=== PATIENT | male | born 1965 | race Caucasian/White ===

== ENCOUNTER 2024-05-25 17:53 | Inpatient (IN) | payer MEDICARE, OTHER, SELFPAY ==
[2024-05-25] VITALS (21 sets, daily range): BP systolic 101–142; BP diastolic 71–106; BMI 26.1; BMI 24.9
--- NOTE | 2024-05-25 09:35 | ED.GENMED ---
History of Present Illness
<ROSA Callejas Jr. Last Filed: 05/25/24 15:02>
General
Chief Complaint: Chest Pain
Source: patient and spouse
Exam Limitations: none
Time Seen by Provider: 05/25/24 09:26
Nursing documentation reviewed up to this point in time: agreed with
History of Present Illness
History of Present Illness:
59-year-old male past medical history of vasculitis currently on chemo, history of clots in the past, neuropathy presenting to the emergency department today with concerns of chest pain intermittently over the past 2 weeks but ongoing since last
night. Started to worsen today with lightheadedness while snowblowing. Also has chest pressure bilaterally no radiation of pain some associated shortness of breath no nausea vomiting or diaphoresis.
Past History
<ROSA Callejas Jr. Last Filed: 05/25/24 15:02>
Past History
ED Past Medical History: Hypercholesterolemia and Other (Vasculitis, MGUS, trigeminal neuralgia)
ED Past Surgical History: Other (Biopsy right ankle area)
Social History
Tobacco: Former smoker
Alcohol: Occasional
Drug: None
Personal:
Living: with family
Employment: Employed
Family History
Family History: Other (He has a father with Ztbdylh-Sirlg-Xumed disease)
Review of Systems
<ROSA Callejas Jr. Last Filed: 05/25/24 15:02>
Review of Systems
Allergies reviewed?: Yes
All Other Systems: ROS reviewed and negative except as documented in HPI and ROS
Phy Exam
<Andrés Elam Jr., PA-C - Last Filed: 05/25/24 15:02>
Physical Exam
Physical Exam:
GENERAL: Alert , in no apparent distress
EYE: pupils equal and reactive
NECK: Supple, no significant adenopathy.
ENT: o/p clr, mmm.
CARDIAC: Tachycardic regular rhythm .
LUNGS: Clear breath sounds bilaterally, no acute respiratory distress, no wheezes/rales/rhonchi
ABDOMEN: Soft, without focal tenderness, no r/g, no cvat
NEUROLOGICAL: Alert and oriented, no focal neuro deficits
SKIN: Warm and dry, skin intact.
MUSCULOSKELETAL: No edema, well perfused.
PSYCH: Normal and appropriate interaction.
Scores
<Andrés Elam Jr., PA-C - Last Filed: 05/25/24 15:02>
Heart Score for Chest Pain Patients
STEMI patient?: No
History: Moderately Suspicious
ECG: Nonspecific Repolarization
Age: >45 - <65 years
Risk Factors: 1 or 2 Risk Factors
Troponin: >/= 3 x Normal Limit
Heart Score for Chest Pain Patients: 6
Heart Score Risk: 20.3% MACE over next 6 weeks
Course
<Andrés Elam Jr., PA-C - Last Filed: 05/25/24 15:02>
Orders/Labs/Results
Orders:
Orders
05/25/24
Electrocardiogram (*1) Stat
Comment: ALREADY DONE
05/25/24 09:25
Adenosine [Adenocard] 6 mg .ROUTE .STK-MED ONE
05/25/24 09:32
Electrocardiogram (*1) Urgent
Reason for Study: Tachycardia
05/25/24 09:33
EKG- Treatment ONCE
05/25/24 09:34
CT Chest PE Study Urgent
Comment:
Reason For Exam: vasculitis hx, tahcy, on chemo, hx of clots
Cardiac Monitoring- Treatment ONCE
05/25/24 09:38
Complete Blood Count/With Diff Urgent
Comprehensive Metabolic Panel Urgent
Magnesium Urgent
NT-proBNP Urgent
PTT Urgent
Prothrombin Time Urgent
TSH Urgent
Troponin I Urgent
05/25/24 09:51
Electrocardiogram (*1) Urgent
Reason for Study: Chest Pain
EKG- Treatment ONCE
05/25/24 12:03
EKG [Electrocardiogram (*1)] Urgent
Reason for Study: Chest Pain
EKG- Treatment ONCE
Aspirin 325 mg PO NOW STA
05/25/24 12:24
Troponin I Urgent
05/25/24 13:[address] Non Medication Order As Directed
Physician Order: PTT 6 hours after initial start of Heparin infusion
Above order entered?: Yes
05/25/24 13:30
Heparin 63552 Units/250 ml 25,000 units in 250 ml IV PER PROTOCOL
Weight to be used for heparin protocol in kilograms (kg):: 87.1
Protocol:: Cardiac Tx/Acute Coronary
PTT Goal Range to be used:: PTT 73 to 111 seconds
Order type:: Initial
INITIAL Infusion Dose (UNITS/KG/hr) & then follow protocol:: 15 units/kg/hr
Infusion Dose in UNITS/hr & then follow protocol (UNITS/hr):: 1,300
INFUSION RATE in mL/hr & then follow protocol (mL/hr):: 13
PTT less than or equal to 64 seconds:: Increase rate by 200 units/hr (+ 2 mL/hr)
PTT 64.1 to 72.9 seconds:: Increase rate by 100 units/hr (+ 1 mL/hr)
PTT 73 to 111 seconds:: Target Range. No change in rate.
PTT 111.1 to 130.9 seconds:: Decrease rate by 100 units/hr (- 1 mL/hr)
PTT 131 to 199.9 seconds:: HOLD for 1 hr. Then decrease rate by 200 units/hr (- 2 mL/hr)
PTT greater than or equal to 200 seconds:: HOLD for 2 hrs & Notify Provider. Then decrease by 200 units/hr (-
2 mL/hr)
Lab follow-up:: Each change, PTT q6h until 2 consecutive are therapeutic. Then PTT
daily.
05/25/24 14:32
Echo 2D MMode Color/Doppler Routine
Reason for Study: heart failure
05/25/24 14:38
PTT Urgent
05/25/24 20:38
PTT Urgent
Abnormal Lab Results
05/25/24 05/25/24
09:38 12:24
MCH 31.9 H pg
(27.0-31.0)
Absolute Neuts (auto) 7.8 H 10^3/uL
(1.4-6.5)
Absolute Monos (auto) 0.9 H 10^3/uL
(0.1-0.6)
Neutrophils % 77.6 H %
(42.2-75.2)
Lymphocytes % 11.5 L %
(20.5-51.1)
Glucose 101 H mg/dl
(70-99)
Troponin I 0.079 H* ng/ml 0.155 H* D ng/ml
Albumin 5.1 H g/dl
(3.5-5.0)
05/25/24 09:38
05/25/24 09:38
Vital Signs
Initial and Last Documented VS:
Initial Vital Signs
Temp Pulse Resp BP Pulse Ox
98.4 F 197 18 142/98 100
05/25/24 09:15 05/25/24 09:15 05/25/24 09:15 05/25/24 09:15 05/25/24 09:15
Last Documented Vital Signs
Temp Pulse Resp BP Pulse Ox
98.4 F 67 20 121/82 99
05/25/24 09:15 05/25/24 13:30 05/25/24 13:30 05/25/24 13:00 05/25/24 13:30
<Lamin Brady MD - Last Filed: 05/25/24 09:38>
Orders/Labs/Results
Orders:
Orders
05/25/24
Electrocardiogram (*1) Stat
Comment: ALREADY DONE
05/25/24 09:25
Adenosine [Adenocard] 6 mg .ROUTE .STK-MED ONE
05/25/24 09:32
Electrocardiogram (*1) Urgent
Reason for Study: Tachycardia
05/25/24 09:33
EKG- Treatment ONCE
05/25/24 09:34
CT Chest PE Study Urgent
Comment:
Reason For Exam: vasculitis hx, tahcy, on chemo, hx of clots
Cardiac Monitoring- Treatment ONCE
05/25/24 09:38
Complete Blood Count/With Diff Urgent
Comprehensive Metabolic Panel Urgent
Magnesium Urgent
NT-proBNP Urgent
PTT Urgent
Prothrombin Time Urgent
TSH Urgent
Troponin I Urgent
05/25/24 09:51
Electrocardiogram (*1) Urgent
Reason for Study: Chest Pain
EKG- Treatment ONCE
05/25/24 12:03
EKG [Electrocardiogram (*1)] Urgent
Reason for Study: Chest Pain
EKG- Treatment ONCE
Aspirin 325 mg PO NOW STA
05/25/24 12:24
Troponin I Urgent
05/25/24 13:[address] Non Medication Order As Directed
Physician Order: PTT 6 hours after initial start of Heparin infusion
Above order entered?: Yes
05/25/24 13:30
Heparin 01200 Units/250 ml 25,000 units in 250 ml IV PER PROTOCOL
Weight to be used for heparin protocol in kilograms (kg):: 87.1
Protocol:: Cardiac Tx/Acute Coronary
PTT Goal Range to be used:: PTT 73 to 111 seconds
Order type:: Initial
INITIAL Infusion Dose (UNITS/KG/hr) & then follow protocol:: 15 units/kg/hr
Infusion Dose in UNITS/hr & then follow protocol (UNITS/hr):: 1,300
INFUSION RATE in mL/hr & then follow protocol (mL/hr):: 13
PTT less than or equal to 64 seconds:: Increase rate by 200 units/hr (+ 2 mL/hr)
PTT 64.1 to 72.9 seconds:: Increase rate by 100 units/hr (+ 1 mL/hr)
PTT 73 to 111 seconds:: Target Range. No change in rate.
PTT 111.1 to 130.9 seconds:: Decrease rate by 100 units/hr (- 1 mL/hr)
PTT 131 to 199.9 seconds:: HOLD for 1 hr. Then decrease rate by 200 units/hr (- 2 mL/hr)
PTT greater than or equal to 200 seconds:: HOLD for 2 hrs & Notify Provider. Then decrease by 200 units/hr (-
2 mL/hr)
Lab follow-up:: Each change, PTT q6h until 2 consecutive are therapeutic. Then PTT
daily.
05/25/24 14:32
Echo 2D MMode Color/Doppler Routine
Reason for Study: heart failure
05/25/24 14:38
PTT Urgent
05/25/24 20:38
PTT Urgent
Abnormal Lab Results
05/25/24 05/25/24
09:38 12:24
MCH 31.9 H pg
(27.0-31.0)
Absolute Neuts (auto) 7.8 H 10^3/uL
(1.4-6.5)
Absolute Monos (auto) 0.9 H 10^3/uL
(0.1-0.6)
Neutrophils % 77.6 H %
(42.2-75.2)
Lymphocytes % 11.5 L %
(20.5-51.1)
Glucose 101 H mg/dl
(70-99)
Troponin I 0.079 H* ng/ml 0.155 H* D ng/ml
Albumin 5.1 H g/dl
(3.5-5.0)
05/25/24 09:38
05/25/24 09:38
Vital Signs
Initial and Last Documented VS:
Initial Vital Signs
Temp Pulse Resp BP Pulse Ox
98.4 F 197 18 142/98 100
05/25/24 09:15 05/25/24 09:15 05/25/24 09:15 05/25/24 09:15 05/25/24 09:15
Last Documented Vital Signs
Temp Pulse Resp BP Pulse Ox
98.4 F 67 20 121/82 99
05/25/24 09:15 05/25/24 13:30 05/25/24 13:30 05/25/24 13:00 05/25/24 13:30
Procedures
<Andrés Elam Jr., PA-C - Last Filed: 05/25/24 15:02>
Other
Indication for procedure:: SVT
Procedure completed by: Myself
Consent form signed: No
If no, reason: Emergency procedure
Additional Procedure:
Verbal consent, SVT heart rate in the 170s. Modified Valsalva performed with immediate resolution of SVT to sinus rhythm in the 90s.
<Andrés Elam Jr., PA-C - Last Filed: 05/25/24 15:02>
MDM/Problems Addressed
MDM/Problems Addressed:
59-year-old male presenting to the emergency department today with concerns of intermittent chest pressure over the past 2 weeks. No referred pain worse with snowblowing this morning. On arrival heart rate in the 190s appears to be in SVT.
Modified Valsalva was performed with success. Appears to be in sinus heart rate in the 90s after conversion. Patient with some ongoing chest pressure here initial troponin level elevated to 0.079. This was repeated at 3 hours and 0.155. EKG does
not show any obvious ischemic changes. Case was discussed with cardiology who recommended starting heparin and ended up taking patient directly to [facility]. Otherwise admitted for further monitoring.
<Andrés Elam Jr., PA-C - Last Filed: 05/25/24 15:02>
*Critical Care Note
Total Time (30-74mins, 75-104mins- exclusive of procedures): Critical care statement:
ED Attending Note
<Andrés Elam Jr., PA-C - Last Filed: 05/25/24 15:02>
-
Portions of this chart may have been created with voice recognition software.� Occasional wrong word or��sound alike� substitutions may have occurred due to the inherent limitations of voice recognition software.
<Lamin Brady MD - Last Filed: 05/25/24 09:38>
ED Attending Note
Patient seen and examined by attending physician: Yes
I performed the substantive portion of visit, reviewed & personally made and approve the management plan that is documented in note by myself or PEDRO LUIS.: Yes
ED Attending Note:
I have seen and evaluated the patient with a [id number] encounter. I have spoken to the [BENJAMIN] and involved in the medical history, the physical exam, medical decision making.
Evaluation and management service: agree unless noted differently below.
Results interpretation: agree unless noted differently below.
59-year-old male with history of vasculitis on chemo, followed by [facility] presenting to the emergency department chest pain. He states that the chest pain has been intermittent for the past few weeks. It worsened this morning when he was snowblowing.
He also developed lightheadedness dizziness as well as palpitations. No leg swelling hemoptysis recent travel. No history of blood clot in his legs. His cardiology is at [facility]. No history of arrhythmias. On exam patient is resting comfortably.
He is talking in full sentences. His heart is regular rhythm but tachycardic in the 180s. His lungs are clear. His legs have no swelling. EKG obtained at triage per my interpretation is SVT. Patient successfully converted to normal sinus rhythm
with vagal maneuvers. Repeat EKG per my interpretation normal sinus rhythm. However he states that the chest pain resolved and then came back. Will obtain repeat EKG. Will also workup PE as well as ACS given the symptoms. Dispo pending those
results.
Discharge Plan
Departure
Patient Disposition: Admit
Date of Disposition: 05/25/24
Time of Disposition: 14:58
Admit to: Telemetry
Admit to doctor: Laya
Presentation/result/management discussed w/ accepting MD/DO: Hospitalist
Patient with high blood pressure during this ER visit?: No
Condition: Good
Covid-19: Not Applicable
Discharge Problem:
Elevated troponin, SVT (supraventricular tachycardia), Chest pain
Prescriptions:
No Action
folic acid 1 MG tablet
1 mg PO DAILY
oxcarbazepine 150 mg Tablet
300 mg PO BID
valacyclovir [Valtrex] 1 gram Tablet
1,000 mg PO DAILY
sucralfate [Carafate] 1 gram Tablet
1 g PO ACHS
amlodipine [Norvasc] 2.5 mg Tablet
2.5 mg PO DAILY
tramadol 50 mg Tablet
50 mg PO 5/D
famotidine [Pepcid] 20 mg Tablet
20 mg PO DAILY
pyridostigmine bromide 60 mg Tablet
120 mg PO DAILY
pyridostigmine bromide 60 mg Tablet
60 mg PO HS
hydrochlorothiazide 25 mg Tablet
25 mg PO DAILY
levofloxacin 500 mg Tablet
500 mg PO DAILY
metformin 500 mg Tablet Extended Release 24 Hr
500 mg PO BID
Referrals:
NONE,* [Family Provider] -
Interventions
Interventions:
*Risk Screen - Suicide Last Done: 05/25/24 09:37
*General Assessment Last Done: 05/25/24 09:36
*Neglect/Abuse Screening Last Done: 05/25/24 09:37
ED- Fall Risk Assessment Last Done: 05/25/24 09:20
*ED COVID-19 Vaccine History Last Done: 05/25/24 09:36
ED- Cardiac Assessment Last Done: 05/25/24 09:20
Discharge Date and Time
Print Language: KHMER
[2024-05-25 09:46] LABS: % Basophils 0.5 % (0-2); % Immature Granulocytes 0.3 % (0-0.5); % Lymphocytes 11.5 % (20.5-51.1); % Monocytes 9.1 % (1.7-9.3); % Neutrophils 77.6 % (42.2-75.2); Absolute Basophils 0.1 10^3/uL (0-0.2); Absolute Eosinophils 0.1 10^3/uL (0-0.7); Absolute Lymphocytes 1.2 10^3/uL (1.2-3.4); Absolute Monocytes 0.9 10^3/uL (0.1-0.6); Absolute Neutrophils 7.8 10^3/uL (1.4-6.5); Hematocrit 45.2 % (39.0-52.0); Hemoglobin 16.2 g/dL (13.0-18.0); Mean Corp Hgb Conc. 35.8 g/dL (33.0-37.0); Mean Corpuscular Hgb 31.9 pg (27.0-31.0); Mean Platelet Volume 10.3 fL (7.4-10.4); Nucleated Red Blood Cells % 0 % (-); Platelet Count 259 10^3/uL (130-400); Red Blood Cell Count 5.08 10^6/uL (4.70-6.10); Red Cell Dist. Width 11.9 % (11.5-14.5); White Blood Cell Count 10.1 10^3/uL (4.8-10.8)
[2024-05-25 10:00] LABS: INR 0.99; PT 13.4 Sec (11.4-14.6)
[2024-05-25 10:01] LABS: APTT 27.7 Sec (23.4-35.0)
[2024-05-25 10:02] LABS: ALT (SGPT) 22 U/L (0-50); AST (SGOT) 34 U/L (17-59); Albumin 5.1 g/dl (3.5-5.0); Alkaline Phosphatase 46 U/L (38-126); Blood Urea Nitrogen 15 mg/dl (9-20); Calcium 10.2 mg/dl (8.4-10.2); Carbon Dioxide 27 mmol/L (22-30); Chloride 98 mmol/L (98-107); Estimated Creatinine Clearance 89 ml/min; Glucose 101 mg/dl (70-99); Magnesium 1.9 mg/dl (1.6-2.3); Potassium 4.4 mmol/L (3.5-5.1); Sodium 136 mmol/L (135-145); Total Bilirubin 0.7 mg/dl (0.2-1.3); Total Protein 7.4 g/dl (6.3-8.2); eGFR > 60.00
[2024-05-25 10:16] LABS: NT-proBNP 33.8 pg/ml; Troponin I 0.079 ng/ml
[2024-05-25 10:43] LABS: TSH 3.44 uIU/ml (0.47-4.68)
[2024-05-25] MEDS: ASPIRIN 325 MG PO (12:19)
[2024-05-25 13:08] LABS: Troponin I 0.155 ng/ml
--- NOTE | 2024-05-25 13:31 | CON.CAR ---
Addendum entered and electronically signed by Jai Marc MD 05/25/24 16:09:
59 yo male with PMH of vasculitis, CVA, MGUS presents to ED with chest pain. For 2 weeks, had low grade temps, aches, and chest pain. Then today, developed severe chest pressure while using snowblower. Exam with RRR, no murmurs, no edema. TnI
0.155. EKG: SVT, with ST depression; then NSR, nl EKG.
Concern for ACS/NSTEMI. ASA, heparin drip. Cath and echo. Also on ddx is myopericarditis.
SVT. Broke with Valsalva. Add beta livier.
Original Note:
Consultation
Consultation Request
Date/Time Consultation Requested: 05/25/24 1326
Date/Time Consultation Performed: 05/25/24 1330
Requesting Provider: Andrés Elam
Performing Provider: Sherri WOODARD for Dr. Marc
Reason for Consultation: SVT, chest discomfort, abnormal troponin
Medical History
-
Chief Complaint: chest discomfort, light-headedness
History of Present Illness:
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
dizziness. Briefly, about 2 weeks ago he had cough, runny nose, fever, achiness, and SOB. He has had constant chest discomfort for two weeks, as well. It has been worse with laying on left side and back and better when laying on right side. He had
OP fever, chills, sweats. He reports he was negative for COVID, flu, and that CXR was okay. He is on a levofloxacin course. This AM, he got out his snowblower and while pushing it, felt significant worsening of his chest pressure, light something
was sitting on his chest. He has also had PIRES with short distances, which is unusual for him. Finally, he developed dizziness today and felt that he might pass out. He came to the ER and was seen to be in SVT with HR's in 180's. This resolved with
vagal maneuvers in the ER. Trop is 0.155. EKG is now normal in SR. At the time of my assessment, he is in no distress. He continues to have the chest discomfort that he has had for two weeks. He was given ASA and heparin in ER. Chest CT with no PE
or aortic pathology.
Past Medical History
Past Medical History: CVA, HTN, Hypercholesterolemia and Other (MGUS, vasculitis, other as above)
Social History
Tobacco: Former Smoker
Personal:
Living: With Family
Family History
Family History: Reviewed & Not Pertinent
Allergies / Home Medications
Allergy/AdvReac Type Severity Reaction Status Date / Time
azathioprine Allergy pancreatiti Verified 12/11/20 09:45
s
�Medication �Instructions �Recorded �Confirmed �Type
folic acid 1 mg tablet 1 mg PO DAILY 09/11/17 05/25/24 History
amlodipine 2.5 mg tablet (Norvasc) 2.5 mg PO DAILY 05/25/24 05/25/24 History
famotidine 20 mg tablet (Pepcid) 20 mg PO DAILY 05/25/24 05/25/24 History
hydrochlorothiazide 25 mg tablet 25 mg PO DAILY 05/25/24 05/25/24 History
levofloxacin 500 mg tablet 500 mg PO DAILY 05/25/24 05/25/24 History
metformin 500 mg tablet,extended 500 mg PO BID 05/25/24 05/25/24 History
release 24 hr
oxcarbazepine 150 mg tablet 300 mg PO BID 05/25/24 05/25/24 History
pyridostigmine bromide 60 mg tablet 60 mg PO HS 05/25/24 05/25/24 History
pyridostigmine bromide 60 mg tablet 120 mg PO DAILY 05/25/24 05/25/24 History
sucralfate 1 gram tablet (Carafate) 1 g PO [facility] 05/25/24 05/25/24 History
tramadol 50 mg tablet 50 mg PO 5/D 05/25/24 05/25/24 History
valacyclovir 1 gram tablet 1,000 mg PO DAILY 05/25/24 05/25/24 History
(Valtrex)
Review of Systems
-
History Source: Patient
All other systems: Negative unless noted
Constitutional: Fever, Chills and Other (sweats)
Respiratory: Cough and Trouble Breathing
Cardiac: Chest Pain
Neurological: Dizzy
Physical Exam
Vital Signs
Temp Pulse Resp BP Pulse Ox
98.4 F 67 22 108/73 97
05/25/24 09:15 05/25/24 12:45 05/25/24 12:45 05/25/24 12:00 05/25/24 12:45
Lab Results
05/25/24 09:38
05/25/24 09:38
Troponin I 0.155 ng/ml H* D 05/25/24 12:24
Imk-X-Leyjdtqoisa Pept 33.8 pg/ml 05/25/24 09:38
Physical Exam
General: Well Developed, Well Nourished and No Apparent Distress
HEENT: Normocephalic and Anicteric
Respiratory: Clear and Wheezes
Cardiac: Regular Rhythm
Skin: Warm and Dry
Neuro: AO x 3
Psych: Calm
Impression / Plan
-
Abnormal troponin, chest discomfort:
-concerning for NSTEMI, which is a diagnosis that is a threat to life
-ASA given- continue. Continue IV heparin, which requires intensive monitoring.
-cath today
-check lipids, hgbA1C
-trend trops to peak, check echo
pSVT:
-resolved with vagal maneuvers
-add BB
Recent illness with cough, fever, chills:
-he tells me covid and flu were negative
-he has been taking levofloxacin
-management per primary
-with recent illness and symptoms, pericarditis is also on the differential with his chest discomfort, but need to assess for ACS first
Vasculitis:
-follows with Rheumatology, Dr. You
MGUS:
-follows with [employer] oncology, Dr. Cain
-on Daratumumab
HTN:
-continue meds and monitor
HLD:
-check lipids
PreDM:
-check HGB1C
-hold metformin with cath
Data Reviewed
-
EKG: Tracing Personally Visualized and interpreted (NSR)
CT Scan: Report Reviewed by me (No evidence of central pulmonary embolism.)
Labs: Labs Reviewed by me
[2024-05-25] MEDS: HEPARIN 25000 UNITS/250 ML IV (14:38)
[2024-05-25 14:59] LABS: APTT 26.1 Sec (23.4-35.0)
--- NOTE | 2024-05-25 15:13 | HPS.HSE ---
Addendum entered and electronically signed by Ludmila Gaspar MD 05/25/24 19:16:
I personally performed a history and physical exam of the patient and discussed management with the resident. I reviewed the resident's note and agree with the documented findings and plan of care HPI/CC.
GENERAL: well developed, well nourished, male in no apparent distress
HEENT: NC/AT--no O2 requirements
HEART: regular rate and rhythm, +S1, +S2--no rubs
LUNGS : clear to auscultation bilaterally
ABDOM: soft, nontender, nondistended, + bowel sounds
EXT: no cyanosis, clubbing, or edema--tender left shoulder lateral--?bursitis
NEUROLOGIC: grossly intact
SVT w/chest pain--atypical for cardiac-- found to be in SVT which resolved after Valsalva, however has elevated troponins (0.079, 0.155). Sent for Cardiac cath; showed No ischemic or hemodynamic source of troponin elevation. Echo was done which
showed Normal biventricular size and systolic function without regional wall motion abnormality, normal pericardium w/o effusion--thoughts are now pericarditis/myocarditis--?viral (was on abx and 'sick' for 2 weeks prior)--colchicine started
Hx Vasculitis - stable at this time, no evidence of acute vasculitis in the BLE. Will order ESR, CRP. Will reach out to patient's Computer Installation Engineer in the AM.
Shoulder pain - Pain on palpation of the L shoulder joint. Unclear if a possible gout flare (which patient admits a remote history of) vs. mechanical trauma as a consequence of snow blowing prior to presentation. Will observe tomorrow, if pain
persists can consider an xray. Will observe for improvement in pain s/p colchicine/Nsaids--possible bursitis
MGUS - On daratumumab infusions monthly, last dose was beginning of May. Will c/w folic acid supplementation & prophylactic valacyclovir.
Alcohol Use--drinks 2-4 drinks nightly but denies hx of withdrawal symptoms- MSAS protocol. Ordered IV & PO thiamine.
Peripheral Neuropathy - Takes 5 tramadol at home. On tramadol q6 prn for pain. Will re-evaluate if pain needs exceed prn scheduling.
Trigeminal neuralgia - c/w Oxcarbazepine
Essential Hypertension - c/w home Amlodipine & HCTZ
Pre-Diabetes vs. Type 2 Diabetes - patient states pre-diabetic with A1C% 6.3 and on metformin--holding anyway for 48 hours due to IV contrast from cath. Can resume thereafter. Until then, LDISS.
DVT proph
Code Status - Full Code
Original Note:
Family Physician
-
Family Physician: * NONE
Chief Complaint
-
Chest Pain/Shortness of breath
History of Present Illness
Sung De La Torre is a 59 year old man with a past medical history of vasculitis, neuropathy of the BL LE secondary to chronic vasculitis (s/p nerve/muscle biopsy 2016), MGUS (on Daratumumab, follows with Dr. [facility]), Hypertension,
Pre-diabetes, trigeminal neuralgia who presented to the ED for 2 weeks of dull chest pain w/ intermittent fevers/shortness of breath.
Patient states he was in his usual state of health roughly 2 weeks ago when he began to have upper respiratory symptoms of cough and runny nose. Soon thereafter, he began to notice a flare up of his vasculitis, for which he called to make an
appointment with his Computer Installation Engineer (Dr. You). However, he quickly developed fever along with URI symptoms and cancelled his Rheum appointment. After the onset of fever, he began to notice a dull achy chest pain that was worse when lying on his L/R
side, and better when lying flat. After 2-3 days the fever and URI symptoms subsided, but the chest pain remained. The fever returned after a few days which prompted him to call his oncologist who ordered a CXR, which was negative. He was ordered
Levofloxacin to possible pneumonia/bacterial URI. The chest pain remained, 3-5/10 intensity with occasional radiation to his R neck/ear/arm. He had two episodes of significant shortness of breath; once when working on his [employer]ower, and again the
day of admission while pushing the snowblower which prompted him to come to the ED.
Medical History
Past Medical History
Past Medical History: Reports GERD, HTN and NIDDM
Additional Past Medical History:
Vasculitis, MGUS, Peripheral Neuropathy, Trigeminal Neuralgia
Past Surgical History: Reports Other (Muscle/nerve biopsy of the RLE in 2017 (Dr. Franz))
Social History
Tobacco: Former Smoker (8 pack year history 30-40 years ago. )
Alcohol: Daily (2-4 drinks of wine)
Drug: None
Personal:
Living: With Family
Employment: Employed
Family History
Family History: Other (Father: [employer] )
Allergies / Home Medications
Allergies reflects when Allergies were last updated in [facility].
Home Medications with original date entered in [facility]
Allergy/Medication List:
Allergies
Allergy/AdvReac Type Severity Reaction Status Date / Time
azathioprine Allergy pancreatiti Verified 12/11/20 09:45
s
Home Medications
folic acid 1 mg tablet 1 mg PO DAILY 09/11/17
amlodipine 2.5 mg tablet (Norvasc) 2.5 mg PO DAILY 05/25/24
famotidine 20 mg tablet (Pepcid) 20 mg PO DAILY 05/25/24
hydrochlorothiazide 25 mg tablet 25 mg PO DAILY 05/25/24
levofloxacin 500 mg tablet 500 mg PO DAILY 05/25/24
metformin 500 mg tablet,extended release 24 hr 500 mg PO BID 05/25/24
oxcarbazepine 150 mg tablet 300 mg PO BID 05/25/24
pyridostigmine bromide 60 mg tablet 60 mg PO HS 05/25/24
pyridostigmine bromide 60 mg tablet 120 mg PO DAILY 05/25/24
sucralfate 1 gram tablet (Carafate) 1 g PO ACHS 05/25/24
tramadol 50 mg tablet 50 mg PO 5/D 05/25/24
valacyclovir 1 gram tablet (Valtrex) 1,000 mg PO DAILY 05/25/24
Review of Systems
-
History Source: Patient
A 12 point ROS was completed and negative except as noted: Yes
Constitutional: Reports Fever, Night Sweats and Chills; Denies Weight Gain, Fatigue or Sleep Disturbance
EENT: Reports See HPI
Respiratory: Reports Trouble Breathing; Denies Cough
Cardiac: Reports Chest Pain; Denies Diaphoresis, Palpitations or Syncope
Abdomen/GI: Denies Abdominal Pain, Nausea, Vomiting or Diarrhea
: Denies Dysuria, Frequency, Bleeding or Dark Urine
Musculoskeletal: Reports Joint Pain (L shoulder); Denies Joint Swelling, Muscle Pain or Edema
Skin: Denies Itching or Rash
Neurological: Denies Dizzy, Headache, Weakness or Numbness
Endocrine: Denies Polyuria or Polydipsia
Hematologic/Lymphatic: Denies Bleeding or Swollen Glands
Psych: Reports Calm
Physical Exam
Vital Signs
Vital Signs
Temp Pulse Resp BP Pulse Ox
98.4 F 70 21 115/80 97
05/25/24 09:15 05/25/24 15:00 05/25/24 15:00 05/25/24 15:00 05/25/24 15:00
Physical Exam
General: Well Developed, Well Nourished, No Apparent Distress, Comfortable and Conversant; No Pain, Fever or Chills
HEENT: NormoCephalic, Anicteric, Moist mucous membranes, PERRLA and [place] Conjunctivae
Respiratory: Clear; No Wheezes, Rales or Rhonchi
Cardiac: S1/S2, Regular Rhythm and Other (Palpation to the 2nd/3rd costosternal joint elicits similar pain to presentation. ); No Murmur, Rub or Gallop
Breast: N/A
GI: Soft, Non Tender, Non Distended and Normal Bowel Sounds
Genito-urinary: Deferred by me
Musculoskeletal: No Clubbing, No Cyanosis, No Edema and Other (L shoulder is painful on the posterior lateral aspect near the insertion of the deltoid. No obvious swelling or deformity. Full passive ROM with limited active ROM due to pain. )
Neuro: Awake, Alert, Oriented, No Motor Deficits and Nonfocal/grossly intact
Hematologic/Lymphatic: No Lymphadenopathy (No lymphadenopathy in the cervical, supraclavicular chains.)
Psych: Calm
Laboratory Results
-
05/25/24 09:38
05/25/24 09:38
Laboratory Results
PT 13.4 Sec (11.4-14.6) 05/25/24 09:38
INR 0.99 05/25/24 09:38
APTT 26.1 Sec (23.4-35.0) 05/25/24 14:38
Total Bilirubin 0.7 mg/dl (0.2-1.3) 05/25/24 09:38
AST 34 U/L (17-59) 05/25/24 09:38
ALT 22 U/L (0-50) 05/25/24 09:38
Alkaline Phosphatase 46 U/L (38-126) 05/25/24 09:38
Troponin I 0.155 ng/ml H* D 05/25/24 12:24
Impression/Plan
-
59 year old male
#SVT w/ chest pain - Chest pain on presentation, found to be in SVT which resolved after Valsalva, however has elevated troponins (0.079, 0.155). Sent for Cardiac cath; showed No ischemic or hemodynamic source of troponin elevation. Echo was done
which showed Normal biventricular size and systolic function without regional wall motion abnormality, normal pericardium w/o effusion.
#Chest Pain, possible musculoskeletal component - Chest pain is also reproducible on exam with palpation to the 2nd/3rd costosternal joints. Possible costochondritis.
#Elevated troponins - 0.079, 0.155. Patient hemodynamically stable at this time; echo & cath clear. Continue to trend until peak. Appreciate cardiology recs
#Vasculitis - stable at this time, no evidence of acute vasculitis in the BLE. Will order ESR, CRP. Will reach out to patient's Computer Installation Engineer in the AM.
#Shoulder pain - Pain on palpation of the L shoulder joint. Unclear if a possible gout flare (which patient admits a remote history of) vs. mechanical trauma as a consequence of snow blowing prior to presentation. Will observe tomorrow, if pain
persists can consider an xray. Will observe for improvement in pain s/p colchicine.
#MGUS - On daratumumab infusions monthly, last dose was beginning of May. Will c/w folic acid supplementation & prophylactic valacyclovir.
#Alcohol Use - MSAS protocol. Ordered IV & PO thiamine.
#Peripheral Neuropathy - Takes 5 tramadol at home. On tramadol q6 prn for pain. Will re-evaluate if pain needs exceed prn scheduling.
#Trigeminal neuralgia - c/w Oxcarbazepine
#Hypertension - c/w home Amlodipine & HCTZ
#Pre-Diabetes vs. Type 2 Diabetes - patient states pre-diabetic with A1C% 6.3, unclear why on metformin as it is not typical to treat pre-diabetes. However, holding anyway for 48 hours due to IV contrast from cath. Can resume thereafter. Until then,
LDISS.
Diet - Diabetic Diet
DVT PPx - SCDs
Code Status - Full Code
--- NOTE | 2024-05-25 16:17 | ITS.CL.CATH ---
[facility] - Catheterization
Cardiac Catheterization
Procedure Report:
CARDIAC CATHETERIZATION REPORT
Date of Procedure: 05/25/2024
Referring: Jai Marc M.D., Ph.D.
INDICATION: Troponin elevation, concern for non-ST elevation myocardial infarction.
PROCEDURE:
1. Left heart catheterization.
2. Coronary angiography.
A total of 26 minutes of procedural/moderate sedation was utilized. An independent general medical practitioner was present to assist with and help manage the patient's level of consciousness and physiologic status.
ACCESS:
1. 6 Nigerien right rate artery using modified Seldinger technique.
CATHETERS:
1. 5 Nigerien JR4.
2. 5 Nigerien JL 3.5.
HEMODYNAMIC DATA
Weight (kg): 87.1
AO (s/d/x, mmHg): 117/81/94
LV (s/x mmHg): 118/5
LEFT VENTRICULOGRAPHY: Not performed.
CORONARY ANGIOGRAPHY
Dominance: Right.
Left Main: Normal size, bifurcating vessel. There is no coronary artery disease.
LAD: Normal size vessel giving rise to 1 significant diagonal before wrapping around the apex. There is no coronary artery disease.
Ramus: Congenitally absent.
Circumflex: Normal size, nondominant vessel giving rise to 2 obtuse marginals. OM1 bifurcates into an upper and lower branch. There is no coronary artery disease.
RCA: Large size, dominant vessel with a substantial posterolateral arcade. The origin of the artery is anterior facing. There is no coronary artery disease.
INTERVENTION(S)
None.
Closure Device: Vascular band.
Radiation (mGy): 238.08
DAP (cm2.Gy): 18.6083
Fluoroscopy time (minutes): 1.4
CONCLUSIONS
1. Right dominant circulation with an anterior facing right coronary artery origin and no coronary artery disease.
2. Normal filling pressures (LVEDP = 5 mmHg at 87.1 kg).
3. No ischemic or hemodynamic source of troponin elevation.
RECOMMENDATIONS:
1. Expectant management after cardiac catheterization via right radial approach.
2. Limited weight bearing on the right wrist for one week.
3. Further workup per primary cardiology service.
Copy to: Jai Marc M.D., Ph.D., Kalin Acosta M.D.
Darin Ordonez DO, FACC, FACP
--- NOTE | 2024-05-25 16:35 | PTCARENOTE ---
Addendum entered by Jessa Contreras RN 05/25/24 17:02:
Admitting resident MD at bedside to assess patient. sterile processing tech at bedside to obtain ECHO.
Original Note:
Received patient from [facility] into [address] in ccl holding. Patient AAOx3. Patient oriented to room. Assessment completed as documented. Patient verbalizes c/o 3/10 chest pressure, 'feels like something is sitting on my chest.' Patient
verbalizes c/o 9/10 left shoulder shooting discomfort with any movement. Comfort measures provided. MD at bedside to discuss admission orders and aware of discomfort. Patient verbalizes understanding.
[2024-05-25] MEDS: TOPROL XL 25 MG PO (16:56)
[2024-05-25] MEDS: COLCHICINE 0.6 MG PO (16:57)
[2024-05-25] MEDS: ULTRAM 50 MG PO (18:19)
--- NOTE | 2024-05-25 19:36 | PTCARENOTE ---
Addendum entered by Diana Spears RN 05/25/24 19:41:
Rec'd Pt [id number]
Original Note:
Rec'd Pt s/p card cath, A,A+Ox3, R radial band intact. O2 sat 97% R finger. +R radial pulse. C/o some chest discomfort rated 3/10 and some intermittent L shoulder pain with movt, rated 7/10. He also had some bilat ankle discomfort with ambulation.
Pt med with Tramadol 50 mg po with relief noted.
[2024-05-25 19:46] LABS: APTT 28.9 Sec (23.4-35.0)
[2024-05-25 20:03] LABS: Troponin I 0.152 ng/ml
[2024-05-25] MEDS: THIAMINE INJECTION 200 MG IV (20:27)
[2024-05-25] MEDS: TRILEPTAL 300 MG PO (20:27)
[2024-05-25] MEDS: MESTINON 60 MG PO (22:38)
[2024-05-25] MEDS: CARAFATE 1 GRAM PO (22:38)
--- NOTE | 2024-05-25 23:21 | PTCARENOTE ---
Pt rec'd at shift change in bathroom. Shortly after pt states that he just had multiple loose stools at one time. ' I've passed so much its now yellow. Pt denies nausea. afebrile. Pt stated he had stomach cramps after eating then had diarrhea. No
further stools since change of shift and pt denies nausea or stomach cramps at this time. MSAS 0. Sinus on telemetry. Right radial site with DDI no hematoma noted-good radial pulse. Left shoulder discomfort only with movement.
[2024-05-26] VITALS (7 sets, daily range): BP systolic 114–139; BP diastolic 71–93
[2024-05-26] MEDS: ULTRAM 50 MG PO ×3 (00:15→18:14)
--- NOTE | 2024-05-26 00:25 | PTCARENOTE ---
Pt called asking for Tramadol for b/l leg pain. pt also c/o chest pain 'same as I've had for two weeks;not like what brought me in'.
remains sinus on telemetry. afebrile.
--- NOTE | 2024-05-26 05:06 | PTCARENOTE ---
Pt stated he hasn't voided throughout the night and he usually is up 3 times. pt bladder scanned at 0500 for 312 cc. pt denies discomfort in bladder. no further loose stools reported.
[2024-05-26 05:56] LABS: % Basophils 0.3 % (0-2); % Eosinophils 1.8 % (0-6); % Immature Granulocytes 0.2 % (0-0.5); % Lymphocytes 12.8 % (20.5-51.1); % Neutrophils 74.9 % (42.2-75.2); Absolute Eosinophils 0.1 10^3/uL (0-0.7); Absolute Lymphocytes 0.8 10^3/uL (1.2-3.4); Absolute Monocytes 0.7 10^3/uL (0.1-0.6); Absolute Neutrophils 4.9 10^3/uL (1.4-6.5); Hematocrit 41.2 % (39.0-52.0); Hemoglobin 14.5 g/dL (13.0-18.0); Mean Corp Hgb Conc. 35.2 g/dL (33.0-37.0); Mean Corpuscular Hgb 31.7 pg (27.0-31.0); Mean Platelet Volume 10.5 fL (7.4-10.4); Nucleated Red Blood Cells % 0 % (-); Platelet Count 233 10^3/uL (130-400); Red Blood Cell Count 4.58 10^6/uL (4.70-6.10); Red Cell Dist. Width 11.9 % (11.5-14.5); White Blood Cell Count 6.6 10^3/uL (4.8-10.8)
[2024-05-26 06:17] LABS: ALT (SGPT) 20 U/L (0-50); AST (SGOT) 28 U/L (17-59); Alkaline Phosphatase 43 U/L (38-126); Blood Urea Nitrogen 13 mg/dl (9-20); Calcium 9.2 mg/dl (8.4-10.2); Carbon Dioxide 26 mmol/L (22-30); Chloride 103 mmol/L (98-107); Estimated Creatinine Clearance > 125 ml/min; Glucose 95 mg/dl (70-99); HDL Cholesterol 77 mg/dl; LDL Cholesterol, Calculated 168 mg/dl; Potassium 4.1 mmol/L (3.5-5.1); Sodium 135 mmol/L (135-145); Total Bilirubin 0.6 mg/dl (0.2-1.3); Total Cholesterol 261 mg/dl (50-199); Total Protein 6.1 g/dl (6.3-8.2); Triglyceride 83 mg/dl (10-149); Very Low Density Lipoprotein 16 mg/dl (0-30); eGFR > 60.00
[2024-05-26 07:34] LABS: Erythrocyte Sed Rate 9 mm/hour (0-20)
--- NOTE | 2024-05-26 08:10 | PTCARENOTE ---
Assumed care of pt from prev nsg shift; Pt AAOx3 w/no c/o CP or SOB. Pt does report 5/10 L shoulder pain for which pt was given PRN Tramadol by prev nsg shift. Hospitalist in to see pt & ibuprofen ordered. Pt repositioned w/pillow to LUE/shoulder &
warm blanket applied over shoulder for comfort. Pt w/VS stable w/HR in the 70's & BP 129/88 this AM. Pt is 0 on MSAS. Pt's R radial access site w/dressing C/D/I & no signs or symptoms of bleeding or hematoma. Pt is SR on telemetry monitoring. Pt
w/call enciso within reach & plan of care ongoing.
[2024-05-26] MEDS: CARAFATE PO (08:36)
--- NOTE | 2024-05-26 08:48 | CM ---
Reviewed chart. Met with Mr. De La Torre to review discharge plans. He states prior to admission he resides with his spouse in a two story home with one step to enter. He states he has a full flight of step to get to bedroom/full bathroom. He states
he has a powder room on the first floor. He states prior to admission he was independent with ambulation and adls. He states he jensen not have any DME in the home. He states he has a prescription plan and uses [facility]. Medical work-up in
progress. The discharge plan is to return home with his spouse when medically stable.
[2024-05-26 09:04] LABS: Glycohemoglobin (HgbA1c) 5.3 % (4.0-5.6)
[2024-05-26] MEDS: TRILEPTAL 300 MG PO ×2 (09:42→19:35)
[2024-05-26] MEDS: MESTINON 120 MG PO (09:43)
[2024-05-26] MEDS: PEPCID 20 MG PO (09:43)
[2024-05-26] MEDS: FOLVITE 1 MG PO (09:43)
[2024-05-26] MEDS: VALTREX 1000 MG PO (09:43)
[2024-05-26] MEDS: TOPROL XL 25 MG PO (09:43)
[2024-05-26] MEDS: THIAMINE INJECTION 200 MG IV ×2 (09:43→19:35)
[2024-05-26] MEDS: NORVASC 2.5 MG PO (09:44)
[2024-05-26] MEDS: ORETIC 25 MG PO (09:44)
[2024-05-26] MEDS: MOTRIN 400 MG PO (09:44)
[2024-05-26] MEDS: COLCHICINE 0.6 MG PO ×2 (09:44→19:35)
[2024-05-26] MEDS: LOW STRENGTH ASPIRIN 81 MG PO (09:45)
[2024-05-26 10:18] LABS: COVID-19 Antigen Negative (Negative)
[2024-05-26 12:06] LABS: Glucose - Point of Care 96 mg/dl (70-99)
--- NOTE | 2024-05-26 12:07 | W.PN.CD ---
Today's Communication / Plan
-
Per Dr. Marc will treat empirically for pericarditis
- Colchicine for 3 months
- Motrin high dose, scheduled 600 mg Q8 hrs and then taper once pain improved/resolved consider a taper schedule like 400 q8 for 1 week, 400 bid for 1 week then 200 bid for 1 week then stop
Not clear this is pericarditis
- Consider cardiac MRI
55 min spent caring for pt including reviewing all data, preparing this document, seeing/examining and educating pt on SVT
Impression / Plan
-
Chest pain with abnormal troponin
- Etiology uncertain
- Cath normal
- Echo normal
- EKGs normal
- Elevation preceded SVT
- ESR/CRP are NORMAL
- Pain is not typical of pericarditis
- Dr. Marc empirically added Colchicine and Motrin
- Can consider cardiac MRI
New left shoulder pain
- Etiology uncertain
SVT:
-Pt believes yesterday was first episode
-resolved with vagal maneuvers
-added BB
-education provided, later ablation is a good option if needed, and pt aware
Recent illness with cough, fever, chills:
-he tells me covid and flu were negative
-he has been taking levofloxacin
-management per primary
Hx Vasculitis:
-follows with Rheumatology, Dr. You
MGUS:
-follows with [facility], Dr. Cain
-on Daratumumab
HTN:
-continue meds and monitor
HLD:
-check lipids
PreDM:
-check HGB1C
-hold metformin with cath
Subjective:
Chest pain better but now significant left well localized shoulder pain
Physical Exam
Vital Signs/Labs
Vital Signs
Temp Pulse Resp BP Pulse Ox
98.4 F 59 18 129/88 100
05/26/24 07:25 05/26/24 08:30 05/26/24 07:25 05/26/24 07:25 05/26/24 07:25
05/25/24 05/26/24 05/27/24
06:59 06:59 06:59
Actual Weight 83.2 kg
05/26/24 04:57
05/26/24 04:57
PT 13.4 Sec (11.4-14.6) 05/25/24 09:38
INR 0.99 05/25/24 09:38
APTT 28.9 Sec (23.4-35.0) 05/25/24 19:22
Magnesium 1.9 mg/dl (1.6-2.3) 05/25/24 09:38
Triglycerides 83 mg/dl (10-149) 05/26/24 04:57
LDL Cholesterol, Calc 168 mg/dl 05/26/24 04:57
VLDL Cholesterol, Calc 16 mg/dl (0-30) 05/26/24 04:57
HDL Cholesterol 77 mg/dl 05/26/24 04:57
TSH 3.44 uIU/ml (0.47-4.68) 05/25/24 09:38
05/25/24
09:38
Bqv-R-Ekepadbrhau Pept 33.8
LAB Results
05/25/24 05/25/24 05/25/24
09:38 12:24 19:22
Troponin I 0.079 H* 0.155 H* D Cancelled
05/25/24 05/25/24 05/26/24
19:22 21:00 00:00
Troponin I 0.152 H* Cancelled Cancelled
05/26/24
00:30
Troponin I Cancelled
Physical Exam
Constitutional: No acute distress
EENT: Anicteric
Cardiovascular: Rhythm & rate is regular, Pedal edema is absent and Rub absent
Respiratory: Respiratory effort normal and Lungs clear to auscul.
GI: Soft and Distention absent
Data Reviewed
-
Date of Service: May 26, 2024
--- NOTE | 2024-05-26 12:57 | W.PN.HOSP.TC ---
Addendum entered and electronically signed by Maria Avila MD 05/26/24 14:44:
I saw and evaluated the patient. I reviewed the resident�s note and agree with findings and plan as documented in the resident�s note.
A/P:
# SVT w/atypical chest pain
SVT resolved after Valsalva
Patient underwent cardiac cath due to elevated troponin, cardiac cath showed no ischemia
Echo showed Normal biventricular size and systolic function without regional wall motion abnormality, normal pericardium w/o effusion
thoughts are now pericarditis/myocarditis, ?viral (was on abx and 'sick' for 2 weeks prior), colchicine and Motrin started per card
# Left shoulder pain, acute on chronic, acute component likely due to recent snow shovelling
X-ray without acute abnormality
Suspect due to underlying arthritis
Outpatient rheum follow-up
Pain control with lidocaine cream
# Hx Vasculitis, stable
no evidence of acute vasculitis
ESR/CRP WNL
# MGUS on daratumumab infusions monthly, last dose was beginning of May.
Will c/w folic acid supplementation & prophylactic valacyclovir.
# Alcohol Use
drinks 2-4 drinks nightly but denies hx of withdrawal symptoms
MSAS protocol. Ordered IV & PO thiamine.
# Peripheral Neuropathy
Takes 5 tramadol at home. On tramadol q6 prn for pain.
Will re-evaluate if pain needs exceed prn scheduling.
# Trigeminal neuralgia
c/w Oxcarbazepine
# Essential Hypertension
c/w home Amlodipine & HCTZ
# Pre-Diabetes vs. Type 2 Diabetes
Patient states pre-diabetic with A1C% 6.3 and on metformin
holding anyway for 48 hours due to IV contrast from cath.
Can resume thereafter. Until then, LDISS.
DVT proph: SCD
Code Status - Full Code
Original Note:
Today's Communication/Plan
-
Lidocaine patch for chest & shoulder pain. C/w colchicine/ibuprofen per cardiology recs.
Assessment / Plan
Assessment / Plan
59 year old male
#Pericarditis, possible - positional chest pain with elevated troponins, wnl cath & echo. Cards to treat empirically with colchicine/ high dose Motrin with taper. Can consider cardiac MRI. Appreciate cardiology recs
#SVT (resolved) - Chest pain on presentation, found to be in SVT which resolved after Valsalva. Elevated troponins. Sent for Cardiac cath; showed no ischemic or hemodynamic source of troponin elevation. Echo was done which showed Normal
biventricular size and systolic function without regional wall motion abnormality, normal pericardium w/o effusion. HR stable at this time. Cardiology following.
#Chest Pain, possible musculoskeletal component - Chest pain is also reproducible on exam with palpation to the 2nd/3rd costosternal joints. Possible costochondritis. Will give lidocaine patch and observe to improvement. Will continue to monitor on
colchicine/high dose ibuprofen as above.
#Elevated troponins (resolved) - Peaked at 0.155. Patient hemodynamically stable at this time; echo & cath clear.
#Vasculitis - stable at this time, no evidence of acute vasculitis in the BLE. ESR, CRP wnl.
#Shoulder pain, arthritis vs. mechanical vs. gout flare - Pain on palpation of the L shoulder joint. Unclear if a possible gout flare (which patient admits a remote history of) vs. mechanical trauma. XR if K sgiykder w/ 2 views to be obtained.
Lidocaine patch for L shoulder. On high dose ibuprofen and colchicine as above, if gout component/arthritic, should respond to both.
#MGUS - On daratumumab infusions monthly, last dose was beginning of May. Will c/w folic acid supplementation & prophylactic valacyclovir.
#Alcohol Use - MSAS protocol. Ordered IV & PO thiamine.
#Peripheral Neuropathy - Takes 50mg tramadol at home. On tramadol q6 prn for pain. Will re-evaluate if pain needs exceed prn scheduling.
#Trigeminal neuralgia - c/w Oxcarbazepine
#Hypertension - c/w home Amlodipine & HCTZ
#Pre-Diabetes vs. Type 2 Diabetes - patient states pre-diabetic with A1C% 6.3, unclear why on metformin as it is not typical to treat pre-diabetes. However, holding anyway for 48 hours due to IV contrast from cath. Can resume thereafter. Until then,
LDISS.
Diet - Diabetic Diet
DVT PPx - SCDs
Code Status - Full Code
Anticipated Discharge: 24 - 48 hours
Subjective/Interval History
-
Chest pain still dull and present, minimally improved s/p colchicine. L shoulder pain still present and unchanged from Colchicine. Still feeling 'winded' on ambulation from bed to bathroom/chair.
Objective Data
-
Labs:
Laboratory Results
05/26/24
04:57
WBC 6.6
Hgb 14.5
Hct 41.2
Plt Count 233
Sodium 135
Potassium 4.1
Chloride 103
Carbon Dioxide 26
BUN 13
Creatinine 0.7
Glucose 95
Calcium 9.2
Total Bilirubin 0.6
AST 28
ALT 20
Alkaline Phosphatase 43
Vital Signs:
Vital Signs
Temp Pulse Resp BP Pulse Ox
98.3 F 53 18 139/89 100
05/26/24 12:01 05/26/24 12:15 05/26/24 12:01 05/26/24 12:03 05/26/24 12:01
I&O
05/25/24 05/26/24 05/27/24
06:59 06:59 06:59
Intake Total 633 / 633 480 / 480
Balance 633 / 633 480 / 480
Review of Systems
-
History Source: Patient
Constitutional: Denies Fever, Weight Loss, Night Sweats or Chills
EENT: Reports No Symptoms Reported
Respiratory: Reports Trouble Breathing; Denies Cough, Wheezing or Pleurisy
Cardiac: Reports Chest Pain; Denies Diaphoresis, Palpitations or Syncope
Abdomen/GI: Reports No Symptoms
Breast: Reports N/A
Genitourinary: Reports No Symptoms
Musculoskeletal: Reports Joint Pain (L shoulder); Denies Joint Swelling, Muscle Pain or Edema
Skin: Reports No Symptoms
Neuro: Reports No Symptoms
Hematologic / Lymphatic: Reports No Symptoms
Physical Exam
-
General: Well Developed, Well Nourished, No Apparent Distress and Comfortable
HEENT: Normocephalic, Atraumatic, Moist Mucous Membranes, Anicteric, [place] Conjunctivae and PERRLA
Respiratory: Clear to Auscultation; Negative Wheezes, Rales or Rhonchi
Cardiac: Regular Rhythm and S1/S2; Negative Murmur
Breast: N/A
GI: Soft, Nontender, Nondistended and Normal Bowel Sounds
Musculoskeletal: No Clubbing, No Cyanosis, No Edema and Other (L shoulder tenderness on exam, still full passive ROM w/ active ROM limited due to pain. No obvious warmth or swelling of the joint. Point tenderness to the L greater tuberosity )
Neuro: Awake, Alert, Oriented, No Motor Deficits and No Sensory Deficits
[2024-05-26] MEDS: MOTRIN 600 MG PO ×2 (13:08→21:35)
[2024-05-26] MEDS: CARAFATE 1 GRAM PO ×3 (13:08→21:35)
[2024-05-26] MEDS: LIDOCAINE 4% PATCH 1 PATCH TOPICAL ×2 (13:11→13:12)
[2024-05-26 17:48] LABS: Glucose - Point of Care 105 mg/dl (70-99)
[2024-05-26] MEDS: TYLENOL 650 MG PO (19:35)
[2024-05-26] MEDS: MESTINON 60 MG PO (21:35)
[2024-05-26 21:39] LABS: Glucose - Point of Care 123 mg/dl (70-99)
--- NOTE | 2024-05-26 21:54 | PTCARENOTE ---
Pt with complaints of continued CP 07/13 but states it feels the same as it has been despite pain management. MSAS remains a 0. SB on the monitor. plan of care discussed.
[2024-05-27] VITALS (7 sets, daily range): BP systolic 115–144; BP diastolic 78–87; PULSE 57–58; O2SAT 99
[2024-05-27] MEDS: ULTRAM 50 MG PO (00:48)
[2024-05-27] MEDS: TYLENOL 650 MG PO (02:27)
--- NOTE | 2024-05-27 02:43 | DOWNTIME ---
There was a [employer] Downtime on 05/27/2024 from 0100 to 05/27/2023 at 0205 . Downtime documentation of patient's care, including medication administrations, has been reconciled in the electronic record per guidelines. Refer to the
patient's paper chart under the miscellaneous tab to see printed paper medication records and downtime forms.
[2024-05-27 03:10] LABS: ALT (SGPT) 22 U/L (0-50); AST (SGOT) 26 U/L (17-59); Albumin 4.2 g/dl (3.5-5.0); Alkaline Phosphatase 46 U/L (38-126); Blood Urea Nitrogen 19 mg/dl (9-20); Calcium 9.2 mg/dl (8.4-10.2); Carbon Dioxide 31 mmol/L (22-30); Chloride 99 mmol/L (98-107); Estimated Creatinine Clearance 99 ml/min; Glucose 101 mg/dl (70-99); Potassium 4.1 mmol/L (3.5-5.1); Sodium 135 mmol/L (135-145); Total Bilirubin 0.5 mg/dl (0.2-1.3); Total Protein 6.1 g/dl (6.3-8.2); eGFR > 60.00
[2024-05-27] MEDS: MOTRIN 600 MG PO ×2 (05:05→12:19)
[2024-05-27] MEDS: CARAFATE 1 GRAM PO ×2 (06:36→12:19)
[2024-05-27 08:23] LABS: Glucose - Point of Care 108 mg/dl (70-99)
[2024-05-27] MEDS: MESTINON 120 MG PO (08:23)
[2024-05-27] MEDS: PEPCID 20 MG PO (08:23)
[2024-05-27] MEDS: TRILEPTAL 300 MG PO (08:24)
[2024-05-27] MEDS: VALTREX 1000 MG PO (08:24)
[2024-05-27] MEDS: ORETIC 25 MG PO (08:24)
[2024-05-27] MEDS: NORVASC 2.5 MG PO (08:24)
[2024-05-27] MEDS: TOPROL XL 25 MG PO (08:24)
[2024-05-27] MEDS: COLCHICINE 0.6 MG PO (08:24)
[2024-05-27] MEDS: THIAMINE INJECTION 200 MG IV (08:25)
[2024-05-27] MEDS: FOLVITE 1 MG PO (08:25)
[2024-05-27] MEDS: FLUSH (NSS) 2 FLUSH IV (08:25)
[2024-05-27] MEDS: LIDOCAINE 4% PATCH 1 PATCH TOPICAL ×2 (08:26)
--- NOTE | 2024-05-27 08:37 | PTCARENOTE ---
Addendum entered by Yvonne Sarmiento RN 05/27/24 08:45:
Sinus umna is noted on the monitor with HRs in the 50s.
Original Note:
The patient is aaox3, vss, NSR is noted on the monitor. He states that his left shoulder is 'feeling much better.' However, his mid chest discomfort is still bothering him. He rates his discomfort a 3/10 on scale and describes it as 'pressure''. He
states that it feel worse when he lays on his back or sits back. He states that when he leans forward it feel better.
--- NOTE | 2024-05-27 10:08 | PN.CDI ---
CDI
- -
CDI:
Physician Documentation Request
Admit Date: 05/25/24 17:53
Dear Cardiology,
Please review the following and provide your response in the progress notes.
Clinical Indicators:
- Patient admit for chest pain
- 05/25 Excavator Operator 'No ischemic or hemodynamic source of troponin elevation'
- 05/26 Cardiology 'Chest pain with abnormal troponin'
Laboratory Tests
05/25/24 05/25/24 05/25/24
09:38 12:24 19:22
Troponin I 0.079 H* 0.155 H* D 0.152 H*
Please clarify the following regarding the documented elevated troponins:
Non-ischemic myocardial injury
Clinically insignificant abnormal lab value
Other (please specify)
Use of terms such as suspected, likely, concern for, or probable (associated with a specific diagnosis that is being evaluated, monitored, or treated as if it exists) are acceptable and can be coded in the inpatient setting, when documented at the
time of discharge.
Thank you,
Arvind Escobar RN
CDI Specialist
Please use your independent medical judgment in providing your response.
--- NOTE | 2024-05-27 10:59 | W.PN.CD ---
Today's Communication / Plan
-
colchicine 0.6mg bid, and ibuprofen taper
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
-to consider outpatient cardiac MRI
added Toprol XL 25mg daily for SVT
Impression / Plan
-
Chest pain with abnormal troponin (suspected acute non-ischemic myocardial injury in setting of SVT)
- Cath normal
- Echo normal
- EKG normal
- Elevation preceded documented SVT, but may have had prior episodes before presenting to ED
- ESR/CRP are NORMAL
- possible pericarditis, although with atypical features
-will do colchicine 0.6mg bid, and ibuprofen taper
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
-to consider outpatient cardiac MRI
paroxysmal SVT:
-Pt believes this was first episode
-resolved with vagal maneuvers
-added Toprol XL 25mg daily
-education provided, later ablation is a good option if needed, and pt aware
Recent illness with cough, fever, chills:
-he tells me covid and flu were negative
-management per primary
Hx Vasculitis:
-follows with Rheumatology, Dr. You
MGUS:
-follows with [facility], Dr. Cain
-on Daratumumab
HTN:
-continue meds and monitor
HLD:
-check lipids
PreDM:
-A1c normal on metformin
Subjective:
Chest pain better.
Physical Exam
Vital Signs/Labs
Vital Signs
Temp Pulse Resp BP Pulse Ox
98.3 F 56 20 119/81 98
05/27/24 07:08 05/27/24 07:11 05/27/24 07:08 05/27/24 07:11 05/27/24 07:08
05/26/24 05/27/24 05/28/24
06:59 06:59 06:59
Actual Weight 83.2 kg
05/26/24 04:57
05/27/24 02:34
PT 13.4 Sec (11.4-14.6) 05/25/24 09:38
INR 0.99 05/25/24 09:38
APTT 28.9 Sec (23.4-35.0) 05/25/24 19:22
Magnesium 1.9 mg/dl (1.6-2.3) 05/25/24 09:38
Triglycerides 83 mg/dl (10-149) 05/26/24 04:57
LDL Cholesterol, Calc 168 mg/dl 05/26/24 04:57
VLDL Cholesterol, Calc 16 mg/dl (0-30) 05/26/24 04:57
HDL Cholesterol 77 mg/dl 05/26/24 04:57
TSH 3.44 uIU/ml (0.47-4.68) 05/25/24 09:38
05/25/24
09:38
Puq-A-[id number] Pept 33.8
LAB Results
05/25/24 05/25/24 05/25/24
09:38 12:24 19:22
Troponin I 0.079 H* 0.155 H* D Cancelled
05/25/24 05/25/24 05/26/24
19:22 21:00 00:00
Troponin I 0.152 H* Cancelled Cancelled
05/26/24
00:30
Troponin I Cancelled
Physical Exam
Constitutional: No acute distress
EENT: Moist mucous membranes
Cardiovascular: Rhythm & rate is regular, Pedal edema is absent, JVD pressure is normal and Systolic murmur absent
Respiratory: Lungs clear to auscul.
Neuro/Psych: AO x 3
Data Reviewed
-
Date of Service: May 27, 2024
EKG: Other (Tele: no arrhythmia)
Labs: Labs Reviewed by me
[2024-05-27 12:10] LABS: Glucose - Point of Care 122 mg/dl (70-99)
--- NOTE | 2024-05-27 13:04 | W.DCSUMMARY ---
Documented by User: Hema Christianson MD, Resident 05/27/24 17:24
Discharge Summary
Discharge Data
Date of Admission: 05/25/24
Date of Discharge: 05/27/24
Total time spent discharging patient (in min): >30min
-
Pending Results: No
Hospital Course
Discharging Physician : Dr. Hema Christianson, Dr. Maria Avila
Disposition : Home w/ OP PT orders
Primary care physician : None
Principal Discharge diagnosis : Chest pain, elevated troponin, SVT, shoulder pain, Alcohol use
Chronic Discharge diagnosis : Vasculitis, Trigeminal Neuralgia, Neuropathy, Hypertension, MGUS
Hospital Course :
Sung De La Torre presented to the [facility] after 2 weeks of ongoing chest pain/pressure with intermittent fevers and SOB which worsened the day of presentation. ECG in the ED showed the patient in SVT which resolved with Valsalva. Troponin levels were
elevated and so the patient was sent for cardiac catheterization which showed no blockages. An echo was ordered which demonstrated normal biventricular size and systolic function without regional wall motion abnormality, and an estimated LVEF
55-60%; no significant valve disease. He was started on Toprol XL for rate control.
A lidocaine patch was given for his shoulder pain and chest pain, with improvement in shoulder pain. A L shoulder xray was ordered which showed no osseous pathology. A PT/OT evaluation suggested role for outpatient PT for strengthening.
The patients chronic medical conditions listed above were managed with home medication. He was kept on folic acid supplementation in lieu of chemotherapy infusion with daratumumab as out patient. His metformin was held for 48 hours s/p IV contrast.
patient admitted to an alcohol use history of >10 drinks/week. He was put on MSAS protocol and given Thiamine/Folic acid.
The patient was deemed medically stable for discharge on hospital day 2. He was sent home with a script for physical therapy as out patient for his shoulder, Toprol XL for rate control and a cardiology follow up, colchicine rx for 3 months for
empiric pericarditis treatment, and an NSAID taper with additional omeprazole to protect from GI side effects of NSAID medication. All of this was explained to the patient, as well as the importance of following up with PCP within one week. He
states he understands.
Important imaging findings :
CT Chest PE Study:
No evidence of central pulmonary embolism.
CR Shoulder - Left Min 2 View:
No acute osseous abnormality.
Echo:
Normal biventricular size and systolic function without regional wall motion abnormality. Estimated LVEF 55-60%. No significant valve disease.
Procedure findings :
CARDIAC CATHETERIZATION REPORT:
1. Right dominant circulation with an anterior facing right coronary artery origin and no coronary artery disease.
2. Normal filling pressures (LVEDP = 5 mmHg at 87.1 kg).
3. No ischemic or hemodynamic source of troponin elevation.
Discharge Plan
-
Patient Disposition: Home (Routine Discharge)
Discharge Diagnosis/Procedures: Atypical Chest Pain (resolved);
Paroxysmal supraventricular tachycardia (resolved);
Left Shoulder Pain;
Cardiac catheterization with clean coronaries
Condition: Good
Diet: Low Fat, Low Cholesterol and Low Sodium
Activity: As tolerated
Driving Restrictions: No driving for 24 hours
Bathing Restrictions: None
Other Services: PT
Activity Restrictions/Additional Instructions:
Follow up with your Primary care provider within 1 week of discharge
Stand Alone Forms: DC Instructions- Cath/EP Lab
Referrals:
Agustina Stark MD [Non-Admitting Privileges] - in less than 1 week
Additional Discharge Medication Instructions: Take Colchicine 0.6mg twice per day for the next 3 months
Ibuprofen Taper:
- take 600mg every 8 hours for seven days,
- then take 400mg every 8 hours for seven days,
- then take 400mg every 12 hours for seven days,
- then take 200mg every 12 hours for seven days,
- then stop.
You can stop the taper sooner if you feel your pain has resolved.
Please take Omeprazole 40mg while you are taking the ibuprofen.
Continue taking Metoprolol XL 25mg once per day. Be sure to follow up with your Commercial Portfolio Manager at [facility].
Prescriptions:
New
colchicine 0.6 mg Tablet
0.6 mg PO BID 90 Days Qty: 180 0RF
metoprolol succinate 25 mg Tablet Extended Release 24 Hr
25 mg PO DAILY 30 Days Qty: 30 0RF
ibuprofen [Motrin IB] 200 mg capsule
600 mg PO Q8H 7 Days Qty: 63 0RF
Rx Instructions:
Take 600mg every 8 hours for one week
ibuprofen [Motrin IB] 200 mg capsule
400 mg PO Q8H 7 Days Qty: 42 0RF
Rx Instructions:
Take 400mg every 8 hours for one week
ibuprofen [Motrin IB] 200 mg capsule
400 mg PO Q12H 7 Days Qty: 28 0RF
Rx Instructions:
Take 400mg every 12 hours for one week
ibuprofen [Motrin IB] 200 mg capsule
200 mg PO Q12H 7 Days Qty: 14 0RF
Rx Instructions:
take 200mg every 12 hours for one week, then stop
omeprazole 40 mg capsule,delayed release(DR/EC)
40 mg PO DAILY 30 Days Qty: 30 0RF
Rx Instructions:
Take one capsule once per day until you finish ibuprofen taper
Continued
folic acid 1 MG tablet
1 mg PO DAILY
oxcarbazepine 150 mg Tablet
300 mg PO BID
valacyclovir [Valtrex] 1 gram Tablet
1,000 mg PO DAILY
sucralfate [Carafate] 1 gram Tablet
1 g PO ACHS
amlodipine [Norvasc] 2.5 mg Tablet
2.5 mg PO DAILY
tramadol 50 mg Tablet
50 mg PO 5/D
famotidine [Pepcid] 20 mg Tablet
20 mg PO DAILY
pyridostigmine bromide 60 mg Tablet
120 mg PO DAILY
pyridostigmine bromide 60 mg Tablet
60 mg PO HS
hydrochlorothiazide 25 mg Tablet
25 mg PO DAILY
metformin 500 mg Tablet Extended Release 24 Hr
500 mg PO BID
Discontinued
levofloxacin 500 mg Tablet
500 mg PO DAILY
Discharge Orders:
Discharge Patient (As Directed); Ordered 05/27/24
Ordered By: Hema Christianson
Care Plan Goals
Care Plan Goals:
Problem: Readiness for enhanced knowledge related to diagnosis and treatment plan
Goal: Understand your diagnosis and treatment plan needs, including medications if applicable.
Instructions: Know your diagnosis, underlying causes and treatment plan options, including medications if applicable. Consult with your health care team to learn about your diagnosis and treatment plan, including medications if applicable.
Discharge Date and Time
Discharge Date/Time: 05/27/24 16:43
Print Language: TAJIK

Documented by User: Maria Avila MD 05/27/24 17:27
Discharge Summary
Discharge Data
Date of Admission: 05/25/24
Date of Discharge: 05/27/24
Hospital Course
Discharging Physician : Dr. Hema Christianson, Dr. Maria Avila
Disposition : Home w/ OP PT orders
Primary care physician : None
Principal Discharge diagnosis : Chest pain, elevated troponin, SVT, shoulder pain, Alcohol use
Chronic Discharge diagnosis : Vasculitis, Trigeminal Neuralgia, Neuropathy, Hypertension, MGUS
Hospital Course :
Sung De La Torre presented to the ED after 2 weeks of ongoing chest pain/pressure with intermittent fevers and SOB which worsened the day of presentation. ECG in the ED showed SVT which resolved with Valsalva. Troponin levels were elevated and so
the patient was sent for cardiac catheterization which showed no blockages. An echo was ordered which demonstrated normal biventricular size and systolic function without regional wall motion abnormality, and an estimated LVEF 55-60%; no significant
valve disease. He was started on Toprol XL for rate control.
A lidocaine patch was given for his shoulder pain with improvement. His L shoulder xray was ordered which showed no osseous pathology. PT/OT evaluation suggested role for outpatient PT for strengthening.
The patients chronic medical conditions listed above were managed with home medication. His metformin was held for 48 hours s/p IV contrast.
Patient admitted to an alcohol use history of >10 drinks/week. He was put on MSAS protocol and given Thiamine/Folic acid.
The patient was deemed medically stable for discharge on hospital day 2. He was sent home with a script for physical therapy as out patient for his shoulder, Toprol XL for rate control and a cardiology follow up, colchicine rx for 3 months for
empiric pericarditis treatment, and an NSAID taper with additional omeprazole to protect from GI side effects of NSAID medication. All of this was explained to the patient, as well as the importance of following up with PCP within one week. He
states he understands.
Important imaging findings :
CT Chest PE Study:
No evidence of central pulmonary embolism.
CR Shoulder - Left Min 2 View:
No acute osseous abnormality.
Echo:
Normal biventricular size and systolic function without regional wall motion abnormality. Estimated LVEF 55-60%. No significant valve disease.
Procedure findings :
CARDIAC CATHETERIZATION REPORT:
1. Right dominant circulation with an anterior facing right coronary artery origin and no coronary artery disease.
2. Normal filling pressures (LVEDP = 5 mmHg at 87.1 kg).
3. No ischemic or hemodynamic source of troponin elevation.
Discharge Plan
-
Patient Disposition: Home (Routine Discharge)
Discharge Diagnosis/Procedures: Atypical Chest Pain (resolved);
Paroxysmal supraventricular tachycardia (resolved);
Left Shoulder Pain;
Cardiac catheterization with clean coronaries
Condition: Good
Diet: Low Fat, Low Cholesterol and Low Sodium
Activity: As tolerated
Driving Restrictions: No driving for 24 hours
Bathing Restrictions: None
Other Services: PT
Activity Restrictions/Additional Instructions:
Follow up with your Primary care provider within 1 week of discharge
Stand Alone Forms: DC Instructions- Cath/EP Lab
Referrals:
Agustina Stark MD [Non-Admitting Privileges] - in less than 1 week
Additional Discharge Medication Instructions: Take Colchicine 0.6mg twice per day for the next 3 months
Ibuprofen Taper:
- take 600mg every 8 hours for seven days,
- then take 400mg every 8 hours for seven days,
- then take 400mg every 12 hours for seven days,
- then take 200mg every 12 hours for seven days,
- then stop.
You can stop the taper sooner if you feel your pain has resolved.
Please take Omeprazole 40mg while you are taking the ibuprofen.
Continue taking Metoprolol XL 25mg once per day. Be sure to follow up with your Commercial Portfolio Manager at [facility].
Prescriptions:
New
colchicine 0.6 mg Tablet
0.6 mg PO BID 90 Days Qty: 180 0RF
metoprolol succinate 25 mg Tablet Extended Release 24 Hr
25 mg PO DAILY 30 Days Qty: 30 0RF
ibuprofen [Motrin IB] 200 mg capsule
600 mg PO Q8H 7 Days Qty: 63 0RF
Rx Instructions:
Take 600mg every 8 hours for one week
ibuprofen [Motrin IB] 200 mg capsule
400 mg PO Q8H 7 Days Qty: 42 0RF
Rx Instructions:
Take 400mg every 8 hours for one week
ibuprofen [Motrin IB] 200 mg capsule
400 mg PO Q12H 7 Days Qty: 28 0RF
Rx Instructions:
Take 400mg every 12 hours for one week
ibuprofen [Motrin IB] 200 mg capsule
200 mg PO Q12H 7 Days Qty: 14 0RF
Rx Instructions:
take 200mg every 12 hours for one week, then stop
omeprazole 40 mg capsule,delayed release(DR/EC)
40 mg PO DAILY 30 Days Qty: 30 0RF
Rx Instructions:
Take one capsule once per day until you finish ibuprofen taper
Continued
folic acid 1 MG tablet
1 mg PO DAILY
oxcarbazepine 150 mg Tablet
300 mg PO BID
valacyclovir [Valtrex] 1 gram Tablet
1,000 mg PO DAILY
sucralfate [Carafate] 1 gram Tablet
1 g PO ACHS
amlodipine [Norvasc] 2.5 mg Tablet
2.5 mg PO DAILY
tramadol 50 mg Tablet
50 mg PO 5/D
famotidine [Pepcid] 20 mg Tablet
20 mg PO DAILY
pyridostigmine bromide 60 mg Tablet
120 mg PO DAILY
pyridostigmine bromide 60 mg Tablet
60 mg PO HS
hydrochlorothiazide 25 mg Tablet
25 mg PO DAILY
metformin 500 mg Tablet Extended Release 24 Hr
500 mg PO BID
Discontinued
levofloxacin 500 mg Tablet
500 mg PO DAILY
Discharge Orders:
Discharge Patient (As Directed); Ordered 05/27/24
Ordered By: Hema Chrsitianson
Care Plan Goals
Care Plan Goals:
Problem: Readiness for enhanced knowledge related to diagnosis and treatment plan
Goal: Understand your diagnosis and treatment plan needs, including medications if applicable.
Instructions: Know your diagnosis, underlying causes and treatment plan options, including medications if applicable. Consult with your health care team to learn about your diagnosis and treatment plan, including medications if applicable.
Discharge Date and Time
Discharge Date/Time: 05/27/24 16:43
Print Language: TAJIK
--- NOTE | 2024-05-27 13:05 | W.PN.HOSP.TC ---
Addendum entered and electronically signed by Maria Avila MD 05/27/24 17:28:
total DC time 36 min
Addendum entered and electronically signed by Maria Avila MD 05/27/24 13:22:
I saw and evaluated the patient. I reviewed the resident�s note and agree with findings and plan as documented in the resident�s note.
A/P:
# SVT w/atypical chest pain
SVT resolved after Valsalva
cardiac cath showed no ischemia
Echo showed Normal biventricular size and systolic function without regional wall motion abnormality, normal pericardium w/o effusion
thoughts are now pericarditis/myocarditis, ?viral (was on abx and 'sick' for 2 weeks prior), cont colchicine for 3 months, Motrin taper outpt
# Left shoulder pain, acute on chronic, acute component likely due to recent snow shovelling
X-ray without acute abnormality
Suspect due to underlying arthritis
Outpatient rheum follow-up
Pain control with lidocaine cream
# Hx Vasculitis, stable
no evidence of acute vasculitis
ESR/CRP WNL
# MGUS on daratumumab infusions monthly, last dose was beginning of May.
Will c/w folic acid supplementation & prophylactic valacyclovir.
# Alcohol Use
drinks 2-4 drinks nightly but denies hx of withdrawal symptoms
MSAS protocol. Ordered IV & PO thiamine.
# Peripheral Neuropathy
Takes 5 tramadol at home. On tramadol q6 prn for pain.
Will re-evaluate if pain needs exceed prn scheduling.
# Trigeminal neuralgia
c/w Oxcarbazepine
# Essential Hypertension
c/w home Amlodipine & HCTZ
# Pre-Diabetes vs. Type 2 Diabetes
Patient states pre-diabetic with A1C% 6.3 and on metformin
holding anyway for 48 hours due to IV contrast from cath.
Can resume thereafter. Until then, LDISS.
DVT proph: SCD
Code Status - Full Code
Original Note:
Today's Communication/Plan
-
D/c today. Follow up with out patient PT for shoulder and cardiology. Will continue on x3 months of colchicine and a motrin taper
Assessment / Plan
Assessment / Plan
59 year old male
Patient medically stable for discharge.
#Pericarditis, possible - positional chest pain with elevated troponins, wnl cath & echo. Cards to treat empirically with colchicine/high dose Motrin with taper. Can consider cardiac MRI as outpatient.
#SVT (resolved) - Chest pain on presentation, found to be in SVT which resolved after Valsalva. Elevated troponins. Sent for Cardiac cath; showed no ischemic or hemodynamic source of troponin elevation. Echo was done which showed Normal
biventricular size and systolic function without regional wall motion abnormality, normal pericardium w/o effusion. HR stable at this time. Cardiology Added toprol xl qd for svt.
#Chest Pain, possible musculoskeletal component - Chest pain is also reproducible on exam with palpation to the 2nd/3rd costosternal joints. Possible costochondritis. Not significantly improved with lidocaine patch and observe to improvement. Will
continue to monitor on colchicine/high dose ibuprofen taper as above. Will send home with Omeprazole as well to avoid GI upset from prolonged NSAID use.
#Elevated troponins (resolved) - Peaked at 0.155. Patient hemodynamically stable at this time; echo & cath clear.
#Vasculitis - stable at this time, no evidence of acute vasculitis in the BLE. ESR, CRP wnl.
#Shoulder pain, arthritis vs. mechanical vs. gout flare - Pain on palpation of the L shoulder joint. Unclear if a possible gout flare (which patient admits a remote history of) vs. mechanical trauma. XR w/ 2 shows no acute osseous abnormality and
minimal arthritic changes. Lidocaine patch improved pain significantly. On high dose ibuprofen and colchicine as above, if gout component/arthritic, should respond to both. PT recommending outpatient PT for shoulder weakness.
#MGUS - On daratumumab infusions monthly, last dose was beginning of May. Will c/w folic acid supplementation & prophylactic valacyclovir.
#Alcohol Use - MSAS protocol. Ordered IV & PO thiamine.
#Peripheral Neuropathy - Takes 50mg tramadol at home. On tramadol q6 prn for pain. Will re-evaluate if pain needs exceed prn scheduling.
#Trigeminal neuralgia - c/w Oxcarbazepine
#Hypertension - c/w home Amlodipine & HCTZ
#Pre-Diabetes vs. Type 2 Diabetes - patient states pre-diabetic with A1C% 6.3, unclear why on metformin as it is not typical to treat pre-diabetes. However, holding anyway for 48 hours due to IV contrast from cath. Can resume thereafter. Until then,
LDISS.
Diet - Diabetic Diet
DVT PPx - SCDs
Code Status - Full Code
Anticipated Discharge: Today
Subjective/Interval History
-
left shoulder pain improved with lidocaine patch & ibuprofen, though is having weakness on movement. chest pain mostly unchanged, still positional.
Objective Data
-
Labs:
Laboratory Results
05/27/24
02:34
Sodium 135
Potassium 4.1
Chloride 99
Carbon Dioxide 31 H
BUN 19
Creatinine 0.9
Glucose 101 H
Calcium 9.2
Total Bilirubin 0.5
AST 26
ALT 22
Alkaline Phosphatase 46
Vital Signs:
Vital Signs
Temp Pulse Resp BP Pulse Ox
98.8 F 59 20 115/78 99
05/27/24 11:22 05/27/24 11:24 05/27/24 11:22 05/27/24 11:24 05/27/24 11:24
I&O
05/26/24 05/27/24 05/28/24
06:59 06:59 06:59
Intake Total 633 / 633 960 / 960
Balance 633 / 633 960 / 960
Review of Systems
-
History Source: Patient
All other systems: Reviewed and negative
Constitutional: Reports No Symptoms
EENT: Reports No Symptoms Reported
Respiratory: Reports No Symptoms
Cardiac: Reports Chest Pain; Denies Diaphoresis, Palpitations, Syncope or Orthopnea
Abdomen/GI: Reports No Symptoms
Breast: Reports N/A
Genitourinary: Reports No Symptoms
Musculoskeletal: Reports Joint Pain (L shoulder); Denies Joint Swelling, Muscle Pain or Edema
Skin: Reports No Symptoms
Neuro: Reports No Symptoms
Hematologic / Lymphatic: Reports No Symptoms
Physical Exam
-
General: Well Developed, Well Nourished, No Apparent Distress and Comfortable; Negative Pain, Fever or Chills
HEENT: Normocephalic, Atraumatic, Moist Mucous Membranes, Anicteric, Emmons Conjunctivae, PERRLA, Nose Appears Normal and Ears Appear Normal
Respiratory: Clear to Auscultation; Negative Wheezes, Rales or Rhonchi
Cardiac: Regular Rhythm and S1/S2; Negative Bradycardic
Breast: N/A
GI: Soft, Nontender, Nondistended and Normal Bowel Sounds
Musculoskeletal: No Clubbing, No Cyanosis, No Edema and Other (L shoulder tenderness to palpation, limited active ROM.)
Neuro: Awake, Alert, Oriented and Nonfocal/Grossly Intact
--- NOTE | 2024-05-27 13:39 | CM ---
Reviewed chart. Met with Mr. De La Torre to review discharge plans. He states he is feeling better and maybe able to go home soon. Prior to admission he resides with his spouse in a two story home with one step to enter. He has a full flight of
steps to get to bedroom full bathroom. He has a powder room on the first floor. Prior to admission he was independent with ambulation and adls. He states he does not have any DME in the home. He has a prescription plan and uses [facility].
Medial work-up in progress. The discharge plan is to return home with his spouse when medically stable.
== END 2024-05-27 16:43 | disposition home or self-care (01) | DRG 287 ==
LOC: IVU 17:53
PROVIDERS: Nurse Practitioner; Physician Assistant; ADMITTING PHYSICIAN Internal Medicine; ATTENDING PHYSICIAN Internal Medicine; EMERGENCY PHYSICIAN Student in an Organized Health Care Education/Training Program; OTHER PHYSICIAN Internal Medicine
PROC: B2111ZZ Fluoroscopy of Multiple Coronary Arteries using Low Osmolar Contrast (ICD-10-PCS; 2024-05-25)
PROC: 4A023N7 Measurement of Cardiac Sampling and Pressure, Left Heart, Percutaneous Approach (ICD-10-PCS; 2024-05-25)
DX: I31.9 Disease of pericardium, unspecified (principal); I47.10 Supraventricular tachycardia, unspecified; I5A Non-ischemic myocardial injury (non-traumatic); M25.512 Pain in left shoulder; I77.6 Arteritis, unspecified; D47.2 Monoclonal gammopathy; F10.90 Alcohol use, unspecified, uncomplicated; E11.40 Type 2 diabetes mellitus with diabetic neuropathy, unspecified; G50.0 Trigeminal neuralgia; I50.9 Heart failure, unspecified; I11.0 Hypertensive heart disease with heart failure; Z86.73 Personal history of transient ischemic attack (TIA), and cerebral infarction without residual deficits; E78.00 Pure hypercholesterolemia, unspecified; Z87.891 Personal history of nicotine dependence; Z79.899 Other long term (current) drug therapy; Z79.84 Long term (current) use of oral hypoglycemic drugs; K21.9 Gastro-esophageal reflux disease without esophagitis; Z11.52 Encounter for screening for COVID-19
CPT/HCPCS: 71275; 73030; 80053; 80061; 82962; 83036; 83735; 83880; 84443; 84484; 85025; 85610; 85652; 85730; 86140; 87811; 93005; 93306; 93458; 96374; 97162; 97166; 97535; 99152; 99153; 99285; C1894; J0153; Q9967

== ENCOUNTER 2024-09-15 05:06 | Emergency (ER) | payer MEDICARE, OTHER, SELFPAY ==
[2024-09-15 05:08] VITALS: BP 124/74
[2024-09-15 05:39] VITALS: BMI 24.5
[2024-09-15 05:40] LABS: % Basophils 0.6 % (0-2); % Eosinophils 3.4 % (0-6); % Immature Granulocytes 0.4 % (0-0.5); % Lymphocytes 13.8 % (20.5-51.1); % Monocytes 8.1 % (1.7-9.3); % Neutrophils 73.7 % (42.2-75.2); Absolute Eosinophils 0.2 10^3/uL (0-0.7); Absolute Lymphocytes 0.7 10^3/uL (1.2-3.4); Absolute Monocytes 0.4 10^3/uL (0.1-0.6); Absolute Neutrophils 3.5 10^3/uL (1.4-6.5); Hematocrit 41.6 % (39.0-52.0); Hemoglobin 14.6 g/dL (13.0-18.0); Mean Corp Hgb Conc. 35.1 g/dL (33.0-37.0); Mean Corpuscular Hgb 31.4 pg (27.0-31.0); Mean Corpuscular Volume 89.5 fL (80.0-94.0); Mean Platelet Volume 10.2 fL (7.4-10.4); Nucleated Red Blood Cells % 0 % (-); Platelet Count 251 10^3/uL (130-400); Red Blood Cell Count 4.65 10^6/uL (4.70-6.10); Red Cell Dist. Width 11.9 % (11.5-14.5); White Blood Cell Count 4.7 10^3/uL (4.8-10.8)
[2024-09-15 05:47] VITALS: BP 125/81
[2024-09-15 05:47] LABS: ALT (SGPT) 21 U/L (0-50); AST (SGOT) 33 U/L (17-59); Albumin 4.3 g/dl (3.5-5.0); Alkaline Phosphatase 42 U/L (38-126); Blood Urea Nitrogen 13 mg/dl (9-20); Calcium 9.7 mg/dl (8.4-10.2); Carbon Dioxide 31 mmol/L (22-30); Chloride 103 mmol/L (98-107); Estimated Creatinine Clearance > 125 ml/min; Glucose 92 mg/dl (70-99); Potassium 4.2 mmol/L (3.5-5.1); Sodium 136 mmol/L (135-145); Total Bilirubin 0.5 mg/dl (0.2-1.3); Total Protein 6.6 g/dl (6.3-8.2); eGFR > 60.00
[2024-09-15 06:10] LABS: Erythrocyte Sed Rate 10 mm/hour (0-20)
--- NOTE | 2024-09-15 06:24 | ED.GENMED ---
History of Present Illness
General
Chief Complaint: Chest Pain
Source: patient
Exam Limitations: none
Time Seen by Provider: 09/15/24 06:06
History of Present Illness
History of Present Illness:
See MDM
Past History
Past History
ED Past Medical History: Hypercholesterolemia and Other (Vasculitis, MGUS, trigeminal neuralgia)
ED Past Surgical History: Other (Biopsy right ankle area)
Social History
Tobacco: Former smoker
Alcohol: Occasional
Drug: None
Personal:
Living: with family
Employment: Employed
Family History
Family History: Other (He has a father with [id number] disease)
Phy Exam
Physical Exam
Physical Exam:
See MDM
Scores
Heart Score for Chest Pain Patients
STEMI patient?: No
History: Slightly or Non-Suspicious
ECG: Normal
Age: >45 - <65 years
Risk Factors: 1 or 2 Risk Factors
Troponin: </= Normal Limit
Heart Score for Chest Pain Patients: 2
Heart Score Risk: 2.5% MACE over next 6 weeks
Course
Orders/Labs/Results
Orders:
Orders
09/15/24 05:12
Electrocardiogram (*1) Urgent
Reason for Study: Chest Pain
09/15/24 05:13
EKG- Treatment ONCE
09/15/24 05:24
Complete Blood Count/With Diff Urgent
Comprehensive Metabolic Panel Urgent
ESR [Erythrocyte Sed Rate] Urgent
Troponin I Urgent
09/15/24 06:02
Add On- LAB Urgent
Tests Added?: sed rate
09/15/24 06:15
Colchicine 0.6 mg PO NOW STA
CR Chest - 2 Views Urgent
Comment:
Reason For Exam: central and R side chest pain
Abnormal Lab Results
09/15/24
05:24
WBC 4.7 L 10^3/uL
(4.8-10.8)
RBC 4.65 L 10^6/uL
(4.70-6.10)
MCH 31.4 H pg
(27.0-31.0)
Absolute Lymphs (auto) 0.7 L 10^3/uL
(1.2-3.4)
Lymphocytes % 13.8 L %
(20.5-51.1)
Carbon Dioxide 31 H mmol/L
(22-30)
09/15/24 05:24
09/15/24 05:24
Vital Signs
Initial and Last Documented VS:
Initial Vital Signs
Temp Pulse Resp BP Pulse Ox
97.8 F 74 20 124/74 100
09/15/24 05:08 09/15/24 05:08 09/15/24 05:08 09/15/24 05:08 09/15/24 05:08
Last Documented Vital Signs
Temp Pulse Resp BP Pulse Ox
97.8 F 65 11 125/81 99
09/15/24 05:08 09/15/24 06:45 09/15/24 06:45 09/15/24 05:47 09/15/24 06:45
MDM/Problems Addressed
Differential Diagnosis Includes:
HPI and MDM Narrative:
59-year-old male presenting with central and right-sided chest pain. Initially, pain was intermittent over the past several days. It is now constant. There is no exertional component. Patient states this feels very similar to her prior episode
where he was diagnosed with pericarditis. Symptoms are worse when he lays flat on the right side. Symptoms do improve when he sits upright. EKG was performed showing no ischemic changes. Given no exertional component, doubt ACS. However,
troponin is pending. Will obtain chest x-ray. Will start colchicine given his history and his exam. He also complains of bilateral hand and joint pain. He states his fingers were swollen but they are improving. We discussed the possibility of
undiagnosed polyarthralgia or autoimmune disorder. We discussed having this reevaluated by his PCP to start the process of outpatient autoimmune blood work
Physical exam
General: Well appearing and non-toxic
HEENT: protecting airway
Neck: appears supple
CV: No evidence of cyanosis. Regular rate and rhythm. No murmur
Resp: No accessory muscle use. Lungs clear
Abd: Non-distended
Extremities: No deformities. No hand or foot joint erythema or swelling
Neuro: alert
Psych: Normal affect
Skin: Intact
Problems Addressed including Acute and Chronic Conditions affecting care:
1. Chest pain
Acuity: acute
Prognosis: stable
Details: Given his prior history and current exam, will start colchicine for possible pericarditis
2. Polyarthralgia
Acuity: acute
Prognosis: stable
Details: Discussed possible undiagnosed autoimmune disorder. Discussed having this reevaluated by PCP. Currently, symptoms are improving
Updates
Chest x-ray clear. Troponin negative. Discussed follow-up with PCP
Differential Diagnosis (but not limited to): Autoimmune disorder, pericarditis, noncardiac chest pain
Testing considered: D-dimer but is neither tachycardic nor hypoxic. No clinical evidence of DVT
Drug therapy (if applicable): OTC meds, please see d/c instruction regarding Rx drugs
Amount and/or Complexity of Data Reviewed
Clinical info obtained from: Patient
External data reviewed: N/A
Labs I independently reviewed (but not limited to): ESR and troponin negative
Radiology: X-ray independently reviewed: Chest x-ray clear
Pulse Ox: not hypoxic
EKG independently reviewed: Sinus rhythm, normal axis, no STEMI
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
Critical Care: N/A
Risk of Complication:
Social Determinants of health: Good social support
Discussed with other providers: N/A
Escalation of Care includes Admit/Obs: After being observed in the Emergency Department, pt stable for discharge.
Occasional wrong word or 'sound a like' substitutions may have occurred due to the inherent limitations of voice recognition software. Read the chart carefully and recognize, using context, where substitutions have occurred.
*Critical Care Note
Total Time (30-74mins, 75-104mins- exclusive of procedures): Not Applicable
ED Attending Note
-
Portions of this chart may have been created with voice recognition software.� Occasional wrong word or��sound alike� substitutions may have occurred due to the inherent limitations of voice recognition software.
Discharge Plan
Departure
Patient Disposition: Home (Routine Discharge)
Date of Disposition: 09/15/24
Time of Disposition: 07:44
Patient with high blood pressure during this ER visit?: No
Discharge Problem:
Chest pain
Instructions: Chest Pain PCP Follow Up
Prescriptions:
New
colchicine [Colcrys] 0.6 mg tablet
0.6 mg PO BID Qty: 14 0RF
No Action
folic acid 1 MG tablet
1 mg PO DAILY
oxcarbazepine 150 mg Tablet
300 mg PO BID
valacyclovir [Valtrex] 1 gram Tablet
1,000 mg PO DAILY
sucralfate [Carafate] 1 gram Tablet
1 g PO ACHS
amlodipine [Norvasc] 2.5 mg Tablet
2.5 mg PO DAILY
tramadol 50 mg Tablet
50 mg PO 5/D
famotidine [Pepcid] 20 mg Tablet
20 mg PO DAILY
pyridostigmine bromide 60 mg Tablet
120 mg PO DAILY
pyridostigmine bromide 60 mg Tablet
60 mg PO HS
hydrochlorothiazide 25 mg Tablet
25 mg PO DAILY
metformin 500 mg Tablet Extended Release 24 Hr
500 mg PO BID
colchicine 0.6 mg Tablet
0.6 mg PO BID 90 Days Qty: 180 0RF
metoprolol succinate 25 mg Tablet Extended Release 24 Hr
25 mg PO DAILY 30 Days Qty: 30 0RF
ibuprofen [Motrin IB] 200 mg capsule
600 mg PO Q8H 7 Days Qty: 63 0RF
Rx Instructions:
Take 600mg every 8 hours for one week
ibuprofen [Motrin IB] 200 mg capsule
400 mg PO Q8H 7 Days Qty: 42 0RF
Rx Instructions:
Take 400mg every 8 hours for one week
ibuprofen [Motrin IB] 200 mg capsule
400 mg PO Q12H 7 Days Qty: 28 0RF
Rx Instructions:
Take 400mg every 12 hours for one week
ibuprofen [Motrin IB] 200 mg capsule
200 mg PO Q12H 7 Days Qty: 14 0RF
Rx Instructions:
take 200mg every 12 hours for one week, then stop
omeprazole 40 mg capsule,delayed release(DR/EC)
40 mg PO DAILY 30 Days Qty: 30 0RF
Rx Instructions:
Take one capsule once per day until you finish ibuprofen taper
Referrals:
NONE,* [Family Provider] -
Activity Restrictions/Additional Instructions:
Please return for any worsening symptoms.
You may return at any time if you have further concerns.
Please follow up with your doctor at the first available appointment, preferably this week.
Given your prior history and your current symptoms,. I started you on a short course of colchicine. If symptoms improve, please talk to your primary care doctor about continuing treatment.
Thank you for choosing [facility].
Interventions
Interventions:
*Risk Screen - Suicide Last Done: 09/15/24 05:08
*General Assessment Last Done: 09/15/24 05:47
*Neglect/Abuse Screening Last Done: 09/15/24 05:08
*ED- Fall Risk Assessment Last Done: 09/15/24 05:47
*ED COVID-19 Vaccine History Last Done: 09/15/24 05:47
ED- Cardiac Assessment Last Done: 09/15/24 05:47
Discharge Date and Time
Print Language: LITHUANIAN
[2024-09-15] MEDS: COLCHICINE 0.6 MG PO (06:34)
[2024-09-15 06:37] LABS: Troponin I < 0.012 ng/ml
== END 2024-09-15 08:23 | disposition home or self-care (01) ==
LOC: EMR 05:06
PROVIDERS: Emergency Medicine; EMERGENCY PHYSICIAN Student in an Organized Health Care Education/Training Program
DX: R07.9 Chest pain, unspecified (principal); E78.00 Pure hypercholesterolemia, unspecified; Z87.891 Personal history of nicotine dependence
CPT/HCPCS: 99285; 71046; 80053; 84484; 85025; 85652; 93005